=== PATIENT | female | born 1950 | race Caucasian/White ===

== ENCOUNTER 2017-10-19 10:09 | Emergency (ER) | payer MEDICARE ==
[2017-10-19 10:25] VITALS: BP 156/94
--- NOTE | 2017-10-19 12:35 | UC ---
Lower Extremity/Ankle HPI - HPI Summary HPI Summary: 2 DAYS OF LEFT GREAT TOE PAIN AND REDNESS. DENIES ANY TRAUMA. NO FEVER. NO PREVIOUS SIMILAR EPISODES. NO RECENT CHANGE IN MEDS. CONCERNED ABOUT GOUT. - History of Current Complaint Chief Complaint: UCLowerExtremity Stated Complaint: TOE PAIN Time Seen by Provider: 10/19/17 12:28 Hx Obtained From: Patient Onset/Duration: Sudden Onset, Lasting Days, Still Present Severity Initially: Moderate Severity Currently: Moderate Pain Intensity: 5 Pain Scale Used: 0-10 Numeric Aggravating Factor(s): Standing, Ambulation Alleviating Factor(s): Rest, OTC Meds - IBUPROFEN Able to Bear Weight: Yes - Allergies/Home Medications Allergies/Adverse Reactions: Allergies Allergy/AdvReac Type Severity Reaction Status Date / Time No Known Allergies Allergy Verified 10/19/17 10:18 Home Medications: Home Medications Atorvastatin* [Lipitor 20 MG*] 1 tab PO DAILY 10/19/17 [History Confirmed ] Levothyroxine TAB* [Synthroid 25 MCG TAB*] 1 tab PO DAILY 10/19/17 [History Confirmed 10/19/17] Lisinopril [Lisinopril 2.5 MG-] 1 tab PO DAILY 10/19/17 [History Confirmed 10/19] PMH/Surg Hx/FS Hx/Imm Hx Endocrine History: Dyslipidemia Cardiovascular History: Hypertension - Surgical History Surgical History: None - Family History Known Family History: Positive: Hypertension - Social History Alcohol Use: Occasionally Substance Use Type: None Smoking Status (MU): Never Smoked Tobacco Review of Systems Constitutional: Negative Skin: Other - ERYTHEMA Respiratory: Negative Cardiovascular: Negative Gastrointestinal: Negative Musculoskeletal: Arthralgia, Decreased ROM, Edema All Other Systems Reviewed And Are Negative: Yes Physical Exam Triage Information Reviewed: Yes Appearance: Well-Appearing, No Pain Distress, Well-Nourished Vital Signs: Initial Vital Signs Temp 97.8 F 10/19/17 10:21 Pulse 76 10/19/17 10:21 Resp 14 10/19/17 10:21 BP 156/94 10/19/17 10:21 Pulse Ox 99 10/19/17 10:21 Vital Signs Reviewed: Yes Eyes: Positive: Conjunctiva Clear ENT: Positive: Hearing grossly normal Neck: Positive: Supple Respiratory: Positive: No respiratory distress, No accessory muscle use Cardiovascular: Positive: Pulses Normal Abdomen Description: Positive: Soft Musculoskeletal: Positive: ROM Limited @ - LEFT 1ST MTP, Edema @ - LEFT 1ST MTP , Other: - TTP LEFT 1ST TOE/MTP JOINT Neurological: Positive: Alert Psychological: Positive: Age Appropriate Behavior Skin: Positive: Other - ERYTHEMA LEFT 1ST AND 2ND TOES AND DISTAL FOOT Lower Extremity Course/Dx - Differential Dx/Diagnosis Provider Diagnoses: GOUT - LEFT 1ST MTP JOINT Discharge - Discharge Plan Condition: Stable Disposition: HOME Prescriptions: Indomethacin CAP* [Indocin CAP*] 50 mg PO TID #15 cap Patient Education Materials: Low Purine Diet (ED), Gout (ED) Referrals: Nicolas Yun MD [Primary Care Provider] - 2 Weeks Additional Instructions: YOUR SYMPTOMS ARE CONSISTENT WITH GOUT SO WILL TREAT SUCH. ONCE YOUR SYMPTOMS ARE RESOLVED FOR AT LEAST 2 WEEKS FOLLOW-UP WITH YOUR PCP TO DISCUSS WORK-UP FOR GOUT AND TO DETERMINE IF DAILY PROPHYLACTIC MEDICATION IS SOMETHING TO CONSIDER.
== END 2017-10-19 13:00 | disposition home or self-care (01) ==
LOC: UCEAST 10:09
DX: M10.072 Idiopathic gout, left ankle and foot (principal); E78.5 Hyperlipidemia, unspecified; I10 Essential (primary) hypertension
CPT/HCPCS: 99212; G0463